=== PATIENT | female | born 1950 | race Caucasian/White ===

== ENCOUNTER 2020-05-22 14:24 | Outpatient (RCR) | payer MEDICARE, OTHER, SELFPAY ==
[2020-05-22] MEDS: COVID-19 VACC, MRNA(PFIZER)/PF 30 MCG/0.3 ML SYRINGE IM (07:17)
[2020-06-12] MEDS: COVID-19 VACC, MRNA(PFIZER)/PF 30 MCG/0.3 ML SYRINGE IM (07:09)
== END 2020-05-22 23:59 ==
LOC: IMMUN 14:24
PROVIDERS: Visit Provider Family Medicine
DX: Z23 Encounter for immunization (principal)
CPT/HCPCS: 0001A; 0002A